=== PATIENT | male | born 1970 | race Caucasian/White ===

== ENCOUNTER → 2021-06-25 | Outpatient (CLI) | payer BC ==
--- NOTE | 2021-06-25 14:41 | CT ---
EXAMINATION TYPE: CT abdomen pelvis w con DATE OF EXAM: 06/25/2021 COMPARISON: None. HISTORY: LUQ pain, abnormal LFT's CT DLP: 2593.6 mGycm, Automated Exposure Control for Dose Reduction was Utilized. CONTRAST: CT scan of the abdomen and pelvis is performed with oral and with IV Contrast, patient injected with 100 mL of Isovue 300. FINDINGS: LUNG BASES: No significant abnormality is appreciated. LIVER/GB: Visualized liver is heterogeneously hypodense consistent with diffuse fatty infiltration. N o suspicious biliary dilatation noted. PANCREAS: Mild generalized fat replaced atrophy. SPLEEN: No significant abnormality is seen. ADRENALS: No significant abnormality is seen. KIDNEYS: Symmetric cortical medullary uptake and excretion without hydronephrosis seen bilaterally. T here is simple appearing 2.1 cm thin-walled cyst medially in the lower pole right kidney axial image 45 series 7. BOWEL: Oral contrast reaches the level of the terminal ileum. To appears within normal limits. Normal -appearing appendix is seen for base of cecum. There is no suspicious small or large bowel dilatation identified. Some diverticula in the left and greater degree redundant sigmoid colon are present with out CT evidence for acute diverticulitis. PROSTATE/SEMINAL VESICLES: No gross abnormality seen. LYMPH NODES: No greater than 1cm abdominal or pelvic lymph nodes are appreciated. OSSEOUS STRUCTURES: A second disc phenomenon with mild to moderate disc space narrowing lumbosacral j unction. Vacuum disc phenomenon with mild disc space narrowing L4-L5 level. Ojct-lm-[id number] axial salo int space loss of both hips. OTHER: Mild calcified plaque of the aorta extends into branch vessels. IMPRESSION: Liver is normal in size with marked fatty infiltration. No acute findings are evident.
== END | disposition home or self-care (01) ==
LOC: RADCTMAIN 12:16
PROVIDERS: ATTEND Internal Medicine Hematology & Oncology
DX: K76.0 Fatty (change of) liver, not elsewhere classified (principal)
CPT/HCPCS: 74177; Q9967